=== PATIENT | female | born 1960 | race Caucasian/White ===

== ENCOUNTER → 2018-04-25 | Outpatient (CLI) | payer OTHER ==
[2018-04-29 15:07] LABS: HPV 16 Negative (Negative); HPV 18 Negative (Negative); HPV OTHER HR TYPES Negative (Negative)
== END | disposition home or self-care (01) ==
LOC: LAB 19:22 → LAB SHORT 19:22
PROVIDERS: Physician Assistant
DX: Z12.4 Encounter for screening for malignant neoplasm of cervix (principal)
CPT/HCPCS: 87624; G0145

== ENCOUNTER 2018-06-03 10:03 | Day surgery (SDC) | payer OTHER ==
[~2018-06-03] VITALS: Ht 172.7 cm; Wt 90.8 kg
[~2018-06-03 10:03] MED LIST: Prilosec Otc20 MG PO
[2018-06-03] MEDS ORDERED: MELO7.5 (10:55)
[2018-06-03] MEDS ORDERED: DOXY100T53 (10:55)
== END 2018-06-03 11:54 | disposition home or self-care (01) ==
LOC: ORSCSDS 10:03
PROVIDERS: Internal Medicine Gastroenterology
PROC: 0DB98ZX Excision of Duodenum, Via Natural or Artificial Opening Endoscopic, Diagnostic (ICD-10-PCS; principal; 2018-06-03 11:30)
PROC: 0DB68ZX Excision of Stomach, Via Natural or Artificial Opening Endoscopic, Diagnostic (ICD-10-PCS; principal; 2018-06-03 11:30)
DX: R13.10 Dysphagia, unspecified (principal); K29.50 Unspecified chronic gastritis without bleeding; K22.5 Diverticulum of esophagus, acquired; K29.80 Duodenitis without bleeding; K22.8 Other specified diseases of esophagus; K44.9 Diaphragmatic hernia without obstruction or gangrene; K21.9 Gastro-esophageal reflux disease without esophagitis; F17.210 Nicotine dependence, cigarettes, uncomplicated; Z79.899 Other long term (current) drug therapy
CPT/HCPCS: 88305; 88342; J2704; J7120

== ENCOUNTER → 2018-10-03 | Outpatient (CLI) | payer OTHER ==
[~2018-10-03] MED LIST changes: +DOXY100T53; +MELATONIN5 M1 PO; +MELO7.5
[2018-10-09 11:07] LABS: COTININE None Detected (.); NICOTINE None Detected (.)
== END | disposition home or self-care (01) ==
LOC: LAB 16:39 → LAB SHORT 16:39
PROVIDERS: Otolaryngology
DX: K22.5 Diverticulum of esophagus, acquired (principal)
CPT/HCPCS: G0480

== ENCOUNTER 2018-12-03 05:52 | Inpatient (IN) | payer OTHER ==
[~2018-12-03] VITALS: Ht 172.7 cm; Wt 82.9 kg
[~2018-12-03 05:52] MED LIST changes: -MELATONIN5 M1 PO
--- NOTE | 2018-12-03 06:40 | NUR ---
PT ADMITTED TO [facility]. AGREES WITH PLANNED SURGERY. PT ANXIOUS, STATES IT IS HER FIRST SURGERY. LUNG SOUNDS CLEAR.
[2018-12-03] MEDS ORDERED: MELATONIN5 M1 PO (22:08)
--- NOTE | 2018-12-03 23:30 | NUR ---
PT RATING THROAT PAIN 8/10 DESPITE GIVEN TORADOL. SPOKE WITH DR. JACQUES REGARDING PAIN MANAGEMENT. NEW ORDER FOR IV FENTANYL.
--- NOTE | 2018-12-04 04:03 | NUR ---
SHIFT SUMMARY: PT POD #1 FOR ZENKER DIVERTICULUM. PT PAINFUL IN BEGINNING OF SHIFT. C/O THROAT PAIN+PAIN IN RIGHT ARM R/T ARTHRITIS. GIVEN 25 MCG OF FENATNYL AND TORADOL PER EMAR. PT HARVEY CLEAR LIQ DIET. SALINE LOCKED. INDEPENDENT IN ROOM. PLAN FOR SWALLOW EVAL LATER THIS MORNING.
--- NOTE | 2018-12-04 07:52 | NUR ---
ASSESSMENT: PT SLEEPING. RESP E/U. NO S/S DISTRESS OR PAIN. CALL LIGHT IN REACH. WILL ALLOW REST AND FULLY ASSESS WHEN PT IS AWAKE.
--- NOTE | 2018-12-04 08:15 | NUR ---
ROUNDING: DR JACQUES IN TO SEE PATIENT. PATIENT ENCOURAGED TO TAKE MORE PO. IV SL. PT STATES PAIN AT TOLERABLE LEVEL. PLAN BARIUM SWALLOW THIS AM.
--- NOTE | 2018-12-04 10:03 | NUR ---
IMAGING: PT TO IMAGING FOR BARIUM SWALLOW AT THIS TIME. WILL CONT TO [facility]INITOR WHEN RETURNS TO ROOM.
--- NOTE | 2018-12-04 12:46 | NUR ---
transfer: DR JACQUES IN TO SEE PATIENT. PLAN TO TRANSFER TO ICU AFTER REPEAT IMAGING. NEW ORDERS ENTERED. REPORT CALLED TO [facility].
--- NOTE | 2018-12-04 13:15 | NUR ---
ARRIVAL TO UNIT PT. ARRIVES VIA WHEEL CHAIR FROM IMAGING. PT. VSS UPON ARRIVAL. ABLE TO TRANSFER SELF TO ICU BED. PT. PLACED ON COMPONENT DESIGN ENGINEER. VSS UPON ARRIVAL. PT. REPORTS SOME PAIN TO CHEST WITH DEEP BREATHING. FLUIDS AND ANTIBIOTICS STARTED UPON ARRIVAL PER DR. JACQUES. CALL LIGHT IN REACH, PT AT BEDSIDE.
[2018-12-04 13:59] LABS: BASOPHILS ABSOLUTE AUTO 0.02 K/mm3 (0.00-0.23); BASOPHILS PERCENT AUTO 0 % (0-2); EOSINOPHILS ABSOLUTE AUTO 0.02 K/mm3 (0.00-0.68); EOSINOPHILS PERCENT AUTO 0 % (0-6); Hematocrit 38.8 % (33.0-51.0); Hemoglobin 12.5 g/dL (11.5-16.0); IMMATURE GRAN ABSOLUTE AUTO 0.02 K/mm3 (0.00-0.10); IMMATURE GRAN PERCENT AUTO 0 % (0-1); LYMPHOCYTES ABSOLUTE AUTO 1.42 K/mm3 (0.84-5.20); LYMPHOCYTES PERCENT AUTO 13 % (21-46); MONOCYTES ABSOLUTE AUTO 0.88 K/mm3 (0.16-1.47); MONOCYTES PERCENT AUTO 8 % (4-13); Mean Corpuscular HGB 30.6 pg (26.0-34.0); Mean Corpuscular HGB Conc 32.2 g/dL (31.5-36.5); Mean Corpuscular Volume 95 fL (80-100); Mean Platelet Volume 9.7 fL (9.1-12.4); NEUTROPHILS ABSOLUTE AUTO 8.46 K/mm3 (1.96-9.15); NEUTROPHILS PERCENT AUTO 78 % (41-73); Platelet Count 261 K/mm3 (150-400); RDW Coefficient Variation 13.5 % (11.7-14.2); RDW Standard Deviation 47.8 fL (35.1-46.3); Red Blood Cell Count 4.08 M/mm3 (3.80-5.20); White Blood Cell Count 10.82 K/mm3 (4.00-11.30)
--- NOTE | 2018-12-04 14:00 | NUR ---
CARE ASSUMED OF PT. PT SITTING UP IN BED AWAKE. PT SLIGHTLY DROWSY, C/O PAIN 3/10 TO THROAT; STATES IT IS WORSE WITH SWALLOWING AND WITH DEEP BREATH. FENT WAS GIVEN IV; PT STATES THAT IT HAS HELPED. 500CC NS BOLUS INFUSING. SATS 91% ON RA. DR JACQUES TO COME SPEAK WITH PT AND PT'S ABOUT POSSIBLE TRANSFER.
[2018-12-04 14:14] LABS: Alanine Aminotransfer (ALT/SGP 20 U/L (12-78); Albumin, Blood 2.4 g/dL (3.4-5.0); Albumin/Globulin Ratio 0.8 (0.8-1.8); Alk Phos 86 U/L (50-136); Anion Gap 6 mmol/L (6-16); Aspartate Aminotrans (AST/SGOT 11 U/L (12-37); Bilirubin, Total 0.8 mg/dL (0.1-1.0); Blood Urea Nitrogen 15 mg/dL (8-24); Bun/Creatinine Ratio 17.1 (12.0-20.0); CO2, Blood 26 mmol/L (21-32); Calcium, Blood 8.1 mg/dL (8.5-10.1); Chloride, Blood 108 mmol/L (98-108); Creatinine, Blood 0.88 mg/dL (0.40-1.00); Globulin, Blood 3.2 g/dL (2.2-4.0); Glomerular Filtration Rate >60 (60-); Glucose, Blood 94 mg/dL (70-99); Potassium, Blood 3.3 mmol/L (3.5-5.5); Sodium, Blood 140 mmol/L (136-145); Total Protein, Blood 5.6 g/dL (6.4-8.2); Troponin I <0.015 ng/mL (0.000-0.040)
--- NOTE | 2018-12-04 14:48 | NUR ---
LUNGS CLEAR. NO CREPITUS FELT OVER NECK AND SURROUNDING TISSUES. NECK AND TISSUE JUST BELOW SUPRASTERNAL NOTCH TENDER, EDEMA NOTED AROUND TISSUE SURROUNDING SUPRASTERNAL NOTCH. VS REMAIN STABLE. BP SLIGHTLY HTN. SINUS RHTHYM TO SINUS OMARI. FENT PRN FOR PAIN. DR JACQUES AT BEDSIDE. PT TO TRANSFER TO [facility] TODAY.
--- NOTE | 2018-12-04 16:44 | NUR ---
PT TRANSFERED IN CARE OF REACH AT 1620
== END 2018-12-04 16:23 | disposition short-term general hospital (02) | DRG 391 ==
LOC: SURS 05:52 → PRE IP 07:30 → SURS 09:08 → ICUE 12-04 13:02
PROVIDERS: Internal Medicine Pulmonary Disease; Pharmacist; ADMIT Otolaryngology
PROC: 0DC58ZZ Extirpation of Matter from Esophagus, Via Natural or Artificial Opening Endoscopic (ICD-10-PCS; principal; 2018-12-03 07:30)
PROC: 0DB58ZX Excision of Esophagus, Via Natural or Artificial Opening Endoscopic, Diagnostic (ICD-10-PCS; 2018-12-03 07:30)
DX: K22.5 Diverticulum of esophagus, acquired (principal); J98.51 Mediastinitis; K21.9 Gastro-esophageal reflux disease without esophagitis; Z85.828 Personal history of other malignant neoplasm of skin; Z87.891 Personal history of nicotine dependence
CPT/HCPCS: 36415; 71260; 74220; 80053; 83605; 84484; 85025; J1100; J1885; J2250; J2370; J2405; J2543; J2704; J2710; J3010; J3370; J7030; J7050; J7120; Q9967

== ENCOUNTER → 2021-12-22 | Outpatient (CLI) | payer OTHER ==
[~2021-12-22] MED LIST changes: +MELATONIN5 M1 PO
== END ==
LOC: LAB SHORT 13:08 → LAB 13:08
DX: R82.998 Other abnormal findings in urine (principal)
CPT/HCPCS: 87077; 87086; 87186